=== PATIENT | male | born 1935 | race Caucasian/White ===

== ENCOUNTER 2021-12-21 10:48 | Outpatient (CLI) | payer MEDICARE, SELFPAY ==
--- NOTE | ~2021-12-21 | XR_ITS ---
EXAM: XR abdomen/kub 1V DATE: 12/21/2021 11:30 HISTORY: HISTORY OF KIDNEY STONE, FOLLOW-UP . COMPARISON: None available. FINDINGS: Interstitial lung disease. Cholecystectomy clips. Normal bowel gas pattern. No organomegal y. Vascular calcifications. Pelvic phleboliths. 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 IMPRESSION: No definite urolithiasis. Comparison to outside studies would be helpful if available. Al ternatively, consider CT of the abdomen and pelvis for more definitive evaluation. Reviewed, dictated and finalized at location [facility]. IMPRESSION: No definite urolithiasis. Comparison to outside studies would be he lpful if available. Alternatively, consider CT of the abdomen and pelvis for mo re definitive evaluation.
== END 2021-12-21 10:49 | disposition home or self-care (01) ==
PROVIDERS: PCP Family Medicine Sports Medicine; Visit Provider Urology
DX: Z87.442 Personal history of urinary calculi (principal)
CPT/HCPCS: 74018